=== PATIENT | female | born 1970 | race Caucasian/White ===

== ENCOUNTER 2019-10-19 20:00 | Emergency (ER) | payer OTHER ==
[~2019-10-19] VITALS: Ht 170.2 cm; Wt 66.2 kg
[2019-10-19] MEDS ORDERED: METH10OR2 PO (20:08)
[2019-10-19] MEDS ORDERED: IBUP-23 PO (20:08)
[2019-10-19] MEDS ORDERED: ACET-69 PO (20:08)
[2019-10-19] MEDS ORDERED: HYDROMORPHONE 1 MG/1 ML DISP.SYRIN IV ONE ×3 (20:30→22:00)
[2019-10-19] MEDS ORDERED: CYCLOBENZAPRINE HCL 10 MG TABLET PO ONE (20:30)
[2019-10-19] MEDS ORDERED: LORAZEPAM 2 MG/1 ML VIAL IV ONE ×2 (20:30→21:15)
[2019-10-19] MEDS ORDERED: predniSONE 20 MG TABLET PO ONE (20:30)
[2019-10-19] MEDS ORDERED: HYDROMORPHONE 1 MG/1 ML DISP.SYRIN ONE ×3 (20:38→21:54)
[2019-10-19] MEDS ORDERED: LORAZEPAM 2 MG/1 ML VIAL ONE ×2 (20:39→21:22)
[2019-10-19] MEDS ORDERED: CYCLOBENZAPRINE HCL 10 MG TABLET ONE (20:47)
[2019-10-19] MEDS ORDERED: predniSONE 20 MG TABLET ONE (20:47)
[2019-10-19 20:50] LABS: BASOPHILS % (AUTO) 0.8 % (0.0-2.0); EOSINOPHILS # (AUTO) 0.1 K/uL (0.0-0.7); EOSINOPHILS % (AUTO) 2.8 % (0.0-7.0); HEMATOCRIT 41.2 % (31.2-41.9); HEMOGLOBIN 13.8 g/dL (10.9-14.3); LYMPHOCYTES # (AUTO) 1.6 K/uL (20.0-40.0); LYMPHOCYTES % (AUTO) 33.1 % (20.5-51.5); MEAN CORPUSCULAR HEMOGLOBIN 29.7 uug (24.7-32.8); MEAN CORPUSCULAR HGB CONC 33 g/dL (32.3-35.6); MEAN CORPUSCULAR VOLUME 88.9 fL (75.5-95.3); MONOCYTES # (AUTO) 0.3 K/uL (2.0-10.0); MONOCYTES % (AUTO) 5.2 % (0.0-11.0); NEUTROPHILS # (AUTO) 2.8 K/uL (1.8-8.9); NEUTROPHILS % (AUTO) 58.1 % (38.5-71.5); PLATELET COUNT (AUTO) 134 K/uL (179-408); RED BLOOD CELL COUNT(AUTO) 4.63 MIL/uL (3.63-4.92); WHITE BLOOD COUNT (AUTO) 4.9 K/uL (3.8-11.8)
[2019-10-19 20:52] LABS: CREATININE 0.7 mg/dL (0.6-1.3); POTASSIUM 3.6 mmol/L (3.5-5.1)
[2019-10-19 20:58] LABS: BILIRUBIN,DIRECT 0.2 mg/dL (0.0-0.2); BILIRUBIN,TOTAL 0.7 mg/dL (0.2-1.0)
--- NOTE | 2019-10-19 22:11 | NUR ---
IV removed. Catheter intact and site benign. Pressure and 4x4 gauze applied to site. No bleeding noted.
[2019-10-19 22:12] VITALS: BP 128/74
--- NOTE | 2019-10-19 22:12 | NUR ---
Pt walked out of ER in stable gait with who will drive pt home. Pt states she feels better & would like to be d/c at this time. Patient discharged to home in stable conditon. Written and verbal after care instructions given. Patient verbalizes understanding of instructions. Vital signs stable. No acute distress noted. Respirations even + unlabored.
== END 2019-10-19 22:17 | disposition home or self-care (01) ==
LOC: ER 20:08
DX: M62.838 Other muscle spasm (principal); G89.4 Chronic pain syndrome; J40 Bronchitis, not specified as acute or chronic; F11.20 Opioid dependence, uncomplicated; F41.9 Anxiety disorder, unspecified; F17.290 Nicotine dependence, other tobacco product, uncomplicated; Z71.6 Tobacco abuse counseling; Z79.1 Long term (current) use of non-steroidal anti-inflammatories (NSAID); Z79.899 Other long term (current) drug therapy
CPT/HCPCS: 36415; 71045; 80048; 80076; 85025; 93005; 96374; 96375; 96376; 99284; 99406; J1170 ×3; J2060 ×2; J7512; A4663

== ENCOUNTER 2020-01-06 11:40 | Emergency (ER) | payer OTHER ==
[~2020-01-06] VITALS: Ht 170.2 cm; Wt 66.2 kg
[2020-01-06] MEDS ORDERED: HYDROCODONE/APAP 5-325MG TABLET PO ONE (12:00)
--- NOTE | 2020-01-06 12:00 | NUR ---
ATTEMPTED TO REMOVE THE 2 RINGS ON THE AFFECTED FINGERS, PT COULDNT TOLERATE IT, UNSUCCESSFULL. NOTIFIED
[2020-01-06] MEDS ORDERED: HYDROCODONE/APAP 5-325MG TABLET ONE (12:04)
[2020-01-06] MEDS ORDERED: LORAZEPAM 1 MG TABLET ONE (12:07)
[2020-01-06] MEDS ORDERED: LORAZEPAM 0.5 MG TABLET PO ONE (12:15)
--- NOTE | 2020-01-06 12:56 | NUR ---
JENNIFER VARNER AT BED SIDE TO REMOVE THE RINGS WITH RING CUTTER BORROWED FROM [facility].
[2020-01-06] MEDS ORDERED: MORPHINE SULFATE 4 MG/1 ML DISP.SYRIN IM ONE (13:00)
[2020-01-06] MEDS ORDERED: MORPHINE SULFATE 4 MG/1 ML DISP.SYRIN ONE (13:03)
--- NOTE | 2020-01-06 13:30 | NUR ---
2 RINGS CUT AND REMOVED FROM PT FINGERS.
--- NOTE | 2020-01-06 13:33 | NUR ---
Patient discharged to home in stable conditon. Written and verbal after care instructions given. Patient verbalizes understanding of instructions.PT WALKS IN STEADY GAIT. PT WITH SO. PT NOT DRIVING.
[2020-01-06 14:06] VITALS: BP 111/61
== END 2020-01-06 14:06 | disposition home or self-care (01) ==
LOC: ER 11:40
DX: T23.231A Burn of second degree of multiple right fingers (nail), not including thumb, initial encounter (principal); T23.232A Burn of second degree of multiple left fingers (nail), not including thumb, initial encounter; T31.0 Burns involving less than 10% of body surface; F17.200 Nicotine dependence, unspecified, uncomplicated; Z79.899 Other long term (current) drug therapy; X15.8XXA Contact with other hot household appliances, initial encounter; Y93.01 Activity, walking, marching and hiking; Y92.89 Other specified places as the place of occurrence of the external cause; Y99.8 Other external cause status
CPT/HCPCS: 16020; 96372; 99284; J2270; A4217; A4663

== ENCOUNTER 2020-07-21 09:28 | Emergency (ER) | payer OTHER ==
[~2020-07-21] VITALS: Ht 170.2 cm; Wt 66.2 kg
[~2020-07-21 09:28] MED LIST: ACET-69 PO; IBUP-23 PO; METH10OR2 PO
[2020-07-21] MEDS ORDERED: CLON1TAB PO (09:45)
--- NOTE | 2020-07-21 09:48 | NUR ---
Pt left abrubtly after MD exam, before d/c instructions were complete, did not sign.
== END 2020-07-21 09:50 | disposition home or self-care (01) ==
LOC: ER 09:28
DX: M54.2 Cervicalgia (principal); F43.10 Post-traumatic stress disorder, unspecified; F41.9 Anxiety disorder, unspecified; Z79.891 Long term (current) use of opiate analgesic; F17.200 Nicotine dependence, unspecified, uncomplicated; R00.0 Tachycardia, unspecified
CPT/HCPCS: A4663